=== PATIENT | male | born 1960 | race African-American/Black ===

== ENCOUNTER 2017-04-17 13:20 | Day surgery (SDC) | payer OTHER ==
[~2017-04-17] VITALS: Ht 190.5 cm; Wt 158.7 kg
[~2017-04-17 13:20] MED LIST: ASPIRIN81 M2 PO; CALCIUM ACETAT667 M2 PO; DIALYVITE TABL1 EACH PO; LIPITOR40 MG PO; LOPRESSOR25 MG PO; PLAVIX75 MG PO
[2017-04-17 13:56] LABS: HEMATOCRIT 39.7 % (38.0-50.0); MCH 28.1 PG (29.0-34.0); MCHC 31.7 G/DL (30.0-36.0); MCV 88.4 FL (86-99); MEAN PLAT.VOLUME 8.8 uM^3 (9.0-12.4); PLATELET COUNT 255 K/uL (156-360); RBC DIS.WIDTH-CV 12.8 % (11.8-14.6); RBC DIS.WIDTH-SD 41.5 % (39-53); RED BLOOD COUNT 4.49 M/uL (4.00-5.50); WHITE BLOOD COUNT 6.8 K/uL (4.1-10.2)
[2017-04-17] MEDS ORDERED: PERCOCET 10/1 TABLET PO (14:10)
[2017-04-17 14:19] LABS: ANION GAP 13 MEQ/L (2-14); CHLORIDE 91 MEQ/L (99-109); GFR ESTIMATE (CALCULATED) 6 mL/min/; GLUCOSE 96 mg/dL (70-99); POTASSIUM 4.6 MEQ/L (3.7-5.4); SAMPLE HEMOLYSIS CHECK 0; SAMPLE ICTERIC CHECK 0; SAMPLE LIPEMIA CHECK 0; SODIUM 137 MEQ/L (136-147); UREA NITROGEN (BUN) 34 mg/dL (9-23)
[2017-04-17 14:29] VITALS: BP 128/89
[2017-04-17 15:08] LABS: METH RESISTANT S AUREUS PCR NEGATIVE (NEGATIVE)
[2017-04-17 15:10] LABS: PROBE CHECK PASS; SPECIMEN PROCESSING CONTROL PASS
[2017-04-17 16:54] LABS: POINT-OF-CARE METER ID UU13113675
[2017-04-17 18:41] VITALS: BP 142/70
[2017-04-18] VITALS: BP 111/55
[2017-04-18 03:45] VITALS: BP 115/58
[2017-04-18 07:20] VITALS: BP 142/73
== END 2017-04-18 08:15 | disposition home or self-care (01) ==
LOC: SDC 13:20 → ENRESERV 17:35 → 2SOUTH 17:44 → ENRESERV 17:49 → 2EASTP 18:16
PROVIDERS: Surgery
PROC: 037C3ZZ Dilation of Left Radial Artery, Percutaneous Approach (ICD-10-PCS; principal; 2017-04-17)
DX: T82.858A Stenosis of other vascular prosthetic devices, implants and grafts, initial encounter (principal); I12.0 Hypertensive chronic kidney disease with stage 5 chronic kidney disease or end stage renal disease; E11.22 Type 2 diabetes mellitus with diabetic chronic kidney disease; N18.6 End stage renal disease; Z99.2 Dependence on renal dialysis; E78.4 Other hyperlipidemia; I25.10 Atherosclerotic heart disease of native coronary artery without angina pectoris; Z79.82 Long term (current) use of aspirin
CPT/HCPCS: 80048; 82948; 85027; 87641; 93005; C1725; C1769; C1894; G0378; J0690; J1644; J2250; J2710; J3010; J7040